=== PATIENT | female | born 1970 | race Caucasian/White ===

== ENCOUNTER 2017-09-27 23:54 | Inpatient (IN) | payer MEDICAID ==
[~2017-09-27] VITALS: Ht 157.5 cm; Wt 66.4 kg
[2017-09-28 00:52] LABS: BASOPHIL % 0.5 % (0-2); PLATELET COUNT 217 x10^3mcL (130-400); RED CELL DISTRIBUTION WIDTH 13.2 % (11.5-14.5)
[2017-09-28 01:01] LABS: CALCIUM 8.7 mg/dL (8.5-10.1); CARBON DIOXIDE 31.5 mmol/L (21-32); CHLORIDE SERUM 103 mmol/L (98-107); CREATININE SERUM 0.7 mg/dL (0.6-1.0); GFR1 > 60 mL/min; GLUCOSE SERUM 131 mg/dL (74-106); POTASSIUM SERUM 3.4 mmol/L (3.5-5.1); SODIUM SERUM 139 mmol/L (136-145)
[2017-09-28 01:14] LABS: ALBUMIN 3.5 g/dL (3.4-5.0); ALKALINE PHOSPHATASE 77 U/L (46-116); ALT/SGPT 55 U/L (14-59); AST/SGOT 33 U/L (15-37); T4(THYROXINE) 5.1 ug/dL (4.7-13.3); TOTAL PROTEIN, SERUM 7.5 g/dL (6.4-8.2)
[2017-09-28 02:22] LABS: AMPHETAMINE QUAL UR NONE DETECTED (NEG <=1000)
[2017-09-28 03:04] LABS: MAGNESIUM 2.1 mg/dL (1.8-2.4)
[2017-09-28 03:06] LABS: CHOLESTEROL/HDL RATIO 6.3
[2017-09-28 03:40] VITALS: BP 147/82
[2017-09-28 06:24] VITALS: BP 119/69
[2017-09-28 08:18] LABS: microscopic required? YES; urine erythrocyte 1+ (NEGATIVE)
[2017-09-28 09:43] VITALS: BP 126/70
[2017-09-28 13:28] VITALS: BP 124/73
[2017-09-28 17:31] VITALS: BP 122/66
[2017-09-28 21:39] VITALS: BP 120/60
[2017-09-29 05:43] VITALS: BP 113/67
[2017-09-29 07:47] LABS: BASOPHIL % 0.5 % (0-2); PLATELET COUNT 207 x10^3mcL (130-400); RED CELL DISTRIBUTION WIDTH 13.2 % (11.5-14.5)
[2017-09-29 08:49] LABS: CARBON DIOXIDE 25.8 mmol/L (21-32); CHLORIDE SERUM 106 mmol/L (98-107); SODIUM SERUM 140 mmol/L (136-145)
[2017-09-29 10:03] VITALS: BP 122/62
[2017-09-29 10:20] LABS: CALCIUM 8.5 mg/dL (8.5-10.1); CREATININE SERUM 0.7 mg/dL (0.6-1.0); GFR1 > 60 mL/min; GLUCOSE SERUM 91 mg/dL (74-106); MAGNESIUM 2.3 mg/dL (1.8-2.4); PHOSPHOROUS 3.8 mg/dL (2.5-4.9)
[2017-09-29 14:00] VITALS: BP 125/53
[2017-09-29 18:00] VITALS: BP 127/68
[2017-09-29 21:36] VITALS: BP 113/63
[2017-09-30 05:54] VITALS: BP 106/70
[2017-09-30 06:22] LABS: BASOPHIL % 0.4 % (0-2); PLATELET COUNT 207 x10^3mcL (130-400); RED CELL DISTRIBUTION WIDTH 13.2 % (11.5-14.5)
[2017-09-30 06:33] LABS: CALCIUM 8.5 mg/dL (8.5-10.1); CARBON DIOXIDE 27.8 mmol/L (21-32); CHLORIDE SERUM 107 mmol/L (98-107); CREATININE SERUM 0.6 mg/dL (0.6-1.0); GFR1 > 60 mL/min; GLUCOSE SERUM 101 mg/dL (74-106); POTASSIUM SERUM 3.9 mmol/L (3.5-5.1); SODIUM SERUM 141 mmol/L (136-145)
[2017-09-30 10:11] VITALS: BP 106/70
[2017-09-30 10:23] VITALS: BP 130/70
[2017-09-30] MEDS ORDERED: LIPI10 PO (14:22)
[2017-09-30] MEDS ORDERED: ECO81 PO (14:23)
[2017-09-30] MEDS ORDERED: METOPROLOL TART25 M1 PO (14:23)
[2017-09-30] MEDS ORDERED: GOOD SENSE OMEP20 MG PO (14:24)
== END 2017-09-30 16:00 | disposition home or self-care (01) | DRG 203 ==
LOC: ED 23:54 → DU 09-28 02:02
PROVIDERS: Emergency Medicine; ADMIT Family Medicine Sports Medicine
DX: M94.0 Chondrocostal junction syndrome [Tietze] (principal); N17.0 Acute kidney failure with tubular necrosis; R55 Syncope and collapse; R73.03 Prediabetes; F41.1 Generalized anxiety disorder; E87.6 Hypokalemia; E78.5 Hyperlipidemia, unspecified; E03.9 Hypothyroidism, unspecified; Z68.29 Body mass index [BMI] 29.0-29.9, adult
CPT/HCPCS: 82962; 83880; J2060; J7030; Q0092

== ENCOUNTER 2018-03-16 14:02 | Emergency (ER) | payer MEDICAID ==
[~2018-03-16] VITALS: Ht 157.5 cm; Wt 68.0 kg
[~2018-03-16 14:02] MED LIST: ECO81 PO; GOOD SENSE OMEP20 MG PO; LIPI10 PO; METOPROLOL TART25 M1 PO
[2018-03-16 14:49] VITALS: Ht 157.5 cm; Wt 68.0 kg
[2018-03-16 16:52] VITALS: BP 143/77
== END 2018-03-16 16:52 | disposition home or self-care (01) ==
LOC: ED 14:02
DX: S93.401A Sprain of unspecified ligament of right ankle, initial encounter (principal); X50.1XXA Overexertion from prolonged static or awkward postures, initial encounter; Y93.89 Activity, other specified; Y92.89 Other specified places as the place of occurrence of the external cause; Y99.8 Other external cause status
CPT/HCPCS: Q0092

== ENCOUNTER 2018-04-15 13:18 | Emergency (ER) | payer MEDICAID ==
[~2018-04-15] VITALS: Ht 160 cm; Wt 71.2 kg
[2018-04-15 13:27] VITALS: Ht 160 cm; Wt 71.2 kg
[2018-04-15 15:47] VITALS: BP 146/84
== END 2018-04-15 15:47 | disposition home or self-care (01) ==
LOC: ED 13:18
DX: N64.4 Mastodynia (principal); N63.0 Unspecified lump in unspecified breast

== ENCOUNTER 2018-05-31 16:40 | Emergency (ER) | payer MEDICAID ==
[~2018-05-31] VITALS: Ht 160 cm; Wt 69.4 kg
[2018-05-31 18:37] LABS: RED CELL DISTRIBUTION WIDTH 13.3 % (11.5-14.5)
[2018-05-31 18:43] LABS: CALCIUM 8.5 mg/dL (8.5-10.1); CARBON DIOXIDE 25.2 mmol/L (21-32); CHLORIDE SERUM 98 mmol/L (98-107); GFR1 > 60 mL/min; GLUCOSE SERUM 121 mg/dL (74-106); POTASSIUM SERUM 3.8 mmol/L (3.5-5.1); SODIUM SERUM 132 mmol/L (136-145)
[2018-05-31 18:48] LABS: ALBUMIN 3.5 g/dL (3.4-5.0); ALKALINE PHOSPHATASE 92 U/L (46-116); ALT/SGPT 60 U/L (14-59); AMYLASE 34 U/L (25-115); AST/SGOT 40 U/L (15-37); BILIRUBIN TOTAL 0.61 mg/dL (0.20-1.00); LIPASE 80 IU/L (73-393); TOTAL PROTEIN, SERUM 7.7 g/dL (6.4-8.2)
[2018-05-31 18:49] LABS: PLATELET COUNT 115 x10^3mcL (130-400)
[2018-05-31 20:06] LABS: BAND NEUTROPHIL 0 % (0-10); BASOPHIL 0 % (0-2); MONOCYTE 3 % (0-7); SEGMENTED NEUTROPHILS 88 % (37-75); rbc morphology (normal/abnorm) NORMAL (NORMAL)
[2018-05-31 20:21] LABS: UA SPECIFIC GRAVITY >=1.030 (1.005-1.035); microscopic required? YES; urine erythrocyte 3+ (NEGATIVE)
[2018-05-31 21:00] VITALS: BP 107/71
== END 2018-05-31 20:55 | disposition home or self-care (01) ==
LOC: ED 16:40
PROVIDERS: Specialist
DX: R10.84 Generalized abdominal pain (principal); F41.9 Anxiety disorder, unspecified
CPT/HCPCS: 83880; J0696; J1885; J2405; J3010; J7030